=== PATIENT | female | born 1995 | race Caucasian/White ===

== ENCOUNTER 2019-08-04 11:25 | Outpatient (CLI) | payer OTHER | END 2019-08-04 11:26 | disposition home or self-care (01) | LOC: COV 11:25 | PROVIDERS: ATTEND Family Medicine | DX: U07.1 COVID-19 (principal) | CPT/HCPCS: 81599 ==

== ENCOUNTER 2019-09-06 12:50 | Emergency (ER) | payer OTHER ==
[2019-09-06 13:25] LABS: BASOPHILS % (AUTO) 0.3 %; EOSINOPHILS # (AUTO) 0.1 10^3/uL (0.0-0.7); EOSINOPHILS % (AUTO) 1.2 %; LYMPHOCYTES # (AUTO) 1.1 10^3/uL (1.5-3.5); LYMPHOCYTES % (AUTO) 16.2 %; MEAN CORPUSCULAR HEMOGLOBIN 20.9 pg (27.0-31.0); MEAN CORPUSCULAR HGB CONC 29.8 g/dL (32.0-36.0); MEAN CORPUSCULAR VOLUME 70.3 fL (81.0-99.0); MEAN PLATELET VOLUME 10.6 fL (7.9-10.8); MONOCYTES # (AUTO) 0.3 10^3/uL (0.0-1.0); MONOCYTES % (AUTO) 4.4 %; NEUTROPHILS # (AUTO) 5.1 10^3/uL (1.5-6.6); NEUTROPHILS % (AUTO) 77.3 %; PLT - PLATELET COUNT 457 10^3/uL (130-450); RED BLOOD COUNT 4.78 10^6/uL (4.20-5.40); RED CELL DISTRIBUTION WIDTH 18.7 % (12.0-15.0); WHITE BLOOD COUNT 6.6 x10^3/uL (4.8-10.8)
[2019-09-06 13:38] LABS: ALBUMIN 3.5 g/dL (3.2-5.5); ALBUMIN/GLOBULIN RATIO 0.8 (1.0-2.2); BILIRUBIN,TOTAL 0.3 mg/dL (0.2-1.0); CALCIUM 8.7 mg/dL (8.5-10.3); CREATININE 0.6 mg/dL (0.4-1.0); TOTAL PROTEIN 8.1 g/dL (6.7-8.2)
[2019-09-06] MEDS ORDERED: SUCRALFATE 1 GM/10 ML UDC PO STA (14:40)
[2019-09-06] MEDS ORDERED: MAG HYDROX/AL HYDROX/SIMETH 30 ML UDC PO STA (14:40)
[2019-09-06] MEDS ORDERED: FAMOTIDINE 20 MG TABLET PO STA (14:40)
--- NOTE | 2019-09-06 14:43 | ED Physician Documentation ---
History of Present Illness - Stated complaint Stated Complaint: BODY ACHES/ABD PX - Chief complaint Chief Complaint: Abd Pain - History obtained from History obtained from: Patient - Additonal information Additional information: 24-year-old female states for the past year she has had intermittent left upper abdominal pain. She states she had a colonoscopy in the past that was reportedly normal but never had an endoscopy. She states that she has been told she had ulcers in the past. Is not on any medications for this. She has chronic anemia. States sometimes she feels hot and cold. The left upper abdominal pain is worse with eating. She does not currently have a primary care provider here. Occasionally has constipation. Other times has diarrhea. She does not smoke, occasional alcohol. Takes Motrin 1-2 times per month. She is not , breast-feeding or trying to become . She had a positive coronavirus test 1 month ago. Review of Systems Ten Systems: 10 systems reviewed and negative Constitutional: denies: Fever, Chills Nose: denies: Rhinorrhea / runny nose, Congestion GI: reports: Nausea. denies: Vomiting : denies: Now EGA Skin: denies: Rash Musculoskeletal: denies: Neck pain, Back pain Neurologic: denies: Headache PD PAST MEDICAL HISTORY - Past Medical History Past Medical History: Yes GI: Ulcers - Past Surgical History Past Surgical History: No - Present Medications Home Medications: Ambulatory Orders Medication Instructions Recorded Confirmed Esomeprazole Magnesium [Nexium] 20 mg PO DAILY #30 capsule. 09/06/19 Ferrous Sulfate 325 mg PO DAILY #30 tablet 09/06/19 - Allergies Allergies/Adverse Reactions: Allergies Allergy/AdvReac Type Severity Reaction Status Date / Time No Known Drug Allergies Allergy Verified 09/06/19 12:58 - Living Situation Living Arrangement: reports: At home - Social History Does the pt smoke?: No Does the pt have substance abuse?: No - Family History Family history: reports: Non contributory PD ED PE NORMAL - Vitals Vital signs reviewed: Yes - General General: Alert and oriented X 3, No acute distress - HEENT HEENT: Moist mucous membranes - Neck Neck: Supple, no meningeal sign - Cardiac Cardiac: RRR - Respiratory Respiratory: No respiratory distress, Clear bilaterally - Abdomen Abdomen: Soft, Non tender, Non distended - Back Back: No CVA TTP, No spinal TTP - Derm Derm: Warm and dry - Extremities Extremities: No edema - Neuro Neuro: Alert and oriented X 3 - Psych Psych: Normal mood, Normal affect Results - Vitals Vitals: Vital Signs - 24 hr 09/06/19 09/06/19 12:58 14:46 Temperature 36.5 C Heart Rate 100 89 Respiratory 16 16 Rate Blood Pressure 136/72 H 112/65 O2 Saturation 100 100 Oxygen O2 Source Room air - Labs Labs: Laboratory Tests 09/06/19 09/06/19 09/06/19 13:15 13:15 13:15 WBC 6.6 RBC 4.78 Hgb 10.0 L Hct 33.6 L MCV 70.3 L MCH 20.9 L MCHC 29.8 L RDW 18.7 H Plt Count 457 H MPV 10.6 Neut # (Auto) 5.1 Lymph # (Auto) 1.1 L [place] # (Auto) 0.3 Eos # (Auto) 0.1 Baso # (Auto) 0.0 Absolute Nucleated RBC 0.00 Nucleated RBC % 0.0 Sodium 134 L Potassium 4.1 Chloride 101 Carbon Dioxide 27 Anion Gap 6.0 BUN 9 Creatinine 0.6 Estimated GFR (MDRD) 122 Glucose 112 H Calcium 8.7 Iron 19 L TIBC 470 H % Saturation 4 L Transferrin 336 Total Bilirubin 0.3 AST 13 ALT 11 Alkaline Phosphatase 98 Total Protein 8.1 Albumin 3.5 Globulin 4.6 H Albumin/Globulin Ratio 0.8 L Lipase 30 TSH Free T4 Urine Color Urine Clarity Urine pH Ur Specific Mcintosh Urine Protein Urine Glucose (UA) Urine Ketones Urine Occult Blood Urine Nitrite Urine Bilirubin Urine Urobilinogen Ur Leukocyte Esterase Ur Microscopic Review Urine Culture Comments Urine HCG, Qual 09/06/19 09/06/19 13:15 14:40 WBC RBC Hgb Hct MCV MCH MCHC RDW Plt Count MPV Neut # (Auto) Lymph # (Auto) [place] # (Auto) Eos # (Auto) Baso # (Auto) Absolute Nucleated RBC Nucleated RBC % Sodium Potassium Chloride Carbon Dioxide Anion Gap BUN Creatinine Estimated GFR (MDRD) Glucose Calcium Iron TIBC % Saturation Transferrin Total Bilirubin AST ALT Alkaline Phosphatase Total Protein Albumin Globulin Albumin/Globulin Ratio Lipase TSH 0.76 Free T4 1.06 Urine Color YELLOW Urine Clarity CLEAR Urine pH 6.5 Ur Specific Mcintosh 1.020 Urine Protein NEGATIVE Urine Glucose (UA) NEGATIVE Urine Ketones NEGATIVE Urine Occult Blood NEGATIVE Urine Nitrite NEGATIVE Urine Bilirubin NEGATIVE Urine Urobilinogen 1 (NORMAL) Ur Leukocyte Esterase NEGATIVE Ur Microscopic Review NOT INDICATED Urine Culture Comments NOT INDICATED Urine HCG, Qual NEGATIVE PD MEDICAL DECISION MAKING - ED course Complexity details: reviewed results, re-evaluated patient, considered differential, d/w patient ED course: 24-year-old female presents to the emergency department what appears to be a gastritis. Feels better after GI cocktail. Will place on a PPI for home. She is well-appearing, nontoxic. Afebrile. Does have anemia as well, appears to be iron deficiency and I will start her on iron pills. She was also complaining several more vague symptoms for the past year, so thyroid studies were undertaken as well. We will have her follow-up with her doctor for further care. Patient counseled regarding signs and symptoms for which I believe and urgent re-evaluation would be necessary. Patient with good understanding of and agreement to plan and is comfortable going home at this time This document was made in part using voice recognition software. While efforts are made to proofread this document, sound alike and grammatical errors may occur. Departure - Departure Disposition: Home, Self Care Clinical Impression: Gastritis Qualifiers: Gastritis type: unspecified gastritis Chronicity: acute Gastritis bleeding: without bleeding Qualified Code(s): K29.00 - Acute gastritis without bleeding Iron deficiency anemia Qualifiers: Iron deficiency anemia type: unspecified iron deficiency Qualified Code(s): D50.9 - Iron deficiency anemia, unspecified Condition: Good Instructions: ED Anemia Iron Deficiency, ED Gastritis Follow-Up: Your,doctor in 1 week [Other] Prescriptions: Esomeprazole Magnesium [Nexium] 20 mg PO DAILY #30 capsule. Ferrous Sulfate 325 mg PO DAILY #30 tablet Comments: Use the medications as prescribed. Return if you worsen. Follow-up with your doctor for further care. Discharge Date/Time: 09/06/19 15:49
[2019-09-06 14:47] VITALS: BP 112/65
[2019-09-06 14:50] LABS: BILIRUBIN,URINE NEGATIVE (NEGATIVE); GLUCOSE, URINE (UA) NEGATIVE (NEGATIVE); KETONES,URINE (UA) NEGATIVE (NEGATIVE); LEUKOCYTE ESTERASE, URINE NEGATIVE (NEGATIVE); NITRITE,URINE NEGATIVE (NEGATIVE); OCCULT BLOOD,URINE NEGATIVE (NEGATIVE); PH,URINE 6.5 PH (5.0-7.5); PROTEIN,URINE NEGATIVE (NEGATIVE); UROBILINOGEN,URINE 1 (NORMAL) E.U./dL (NORMAL)
[2019-09-06 14:51] LABS: CLARITY,URINE CLEAR (CLEAR)
[2019-09-06 14:52] LABS: HCG UR QUAL NEGATIVE
[2019-09-06 15:09] LABS: % IRON SATURATION 4 % (20-50); IRON 19 ug/dL (28-170); TOTAL IRON BINDING CAPACITY 470 ug/dL (250-450); TRANSFERRIN 336 mg/dL (192-382)
[2019-09-06 15:15] LABS: THYROID STIMULATING HORMONE 0.76 uIU/mL (0.34-5.60)
[2019-09-06 15:17] LABS: FREE T4 (FREE THYROXINE) 1.06 ng/dL (0.58-1.64)
== END 2019-09-06 15:49 | disposition home or self-care (01) ==
LOC: ED 12:50
DX: K29.00 Acute gastritis without bleeding (principal); D50.9 Iron deficiency anemia, unspecified
CPT/HCPCS: 36415; 81003; 81025; 83540; 83690; 84439; 84466; 99283; 99284; A9270; 80053; 81001; 84443; 85025; 87086